=== PATIENT | male | born 1950 | race Caucasian/White ===

== ENCOUNTER 2017-07-24 16:40 | Emergency (ER) | payer MEDICARE, OTHER ==
[2017-07-24 16:51] VITALS: BP 184/111
[2017-07-24] MEDS ORDERED: cephALEXin 250 MG CAPSULE PO STA (16:59)
[2017-07-24] MEDS ORDERED: TETANUS/DIPHTHERIA/PERTUSSIS 0.5 ML SYRINGE IM ONE ×2 (16:59→17:30)
[2017-07-24] MEDS ORDERED: cephALEXin 250 MG CAPSULE PO ONE (17:30)
--- NOTE | 2017-07-24 17:36 | XRAY Preliminary Report ---
Exam: XR FINGER(S) LT IMPRESSION: 1. No fracture or cortical irregularity of the distal first digit. 2. There is a nail extending through the subcutaneous soft tissue on the volar distal aspect of the f irst digit. [facility] SITE ID: [id number]
--- NOTE | 2017-07-24 17:36 | ED Physician Documentation ---
PD HPI UPPER EXT INJURY - Stated complaint Stated Complaint: FO IN L THUMB - Chief complaint Chief Complaint: Ext Problem - History obtained from History obtained from: Patient - History of Present Illness Location: Left, Finger (thumb) Type of injury: Foreign body (nail) Where injury occurred: Home Timing - onset: How many hours ago (< 1) Similar symptoms before: Has not had sx before - Additonal information Additional information: The patient is a 67-year-old male who was using his nail gun at home with he shot a nail through his left thumb. He is right hand dominant. He is uncertain about his tetanus status. Review of Systems Constitutional: denies: Fever Respiratory: denies: Dyspnea GI: denies: Nausea, Vomiting Skin: denies: Rash Musculoskeletal: reports: Extremity pain (left thumb) Neurologic: denies: Focal weakness, Numbness PD PAST MEDICAL HISTORY - Past Medical History Cardiovascular: Hypertension Respiratory: None Endocrine/Autoimmune: None - Past Surgical History Past Surgical History: Yes - Present Medications Home Medications: Ambulatory Orders Medication Instructions Recorded Confirmed Aspirin [Aspir 81] 81 mg PO DAILY 08/06/15 07/24/17 Metoprolol Tartrate 25 mg PO DAILY 07/24/17 07/24/17 amLODIPine [Norvasc] 5 mg PO DAILY 07/24/17 07/24/17 cephALEXin [Cephalexin] 500 mg PO TID #15 tablet 07/24/17 - Allergies Allergies/Adverse Reactions: Allergies Allergy/AdvReac Type Severity Reaction Status Date / Time lisinopril Allergy Anaphylaxis Verified 07/24/17 16:49 - Social History Does the pt smoke?: No Smoking Status: Never smoker Does the pt drink ETOH?: No Does the pt have substance abuse?: No - Immunizations Immunizations are current?: No Immunizations: TDAP >10years/unknown - POLST Patient has POLST: No PD ED PE NORMAL - Vitals Vital signs reviewed: Yes (Initially hypertensive.) - General General: Alert and oriented X 3, Well developed/nourished - HEENT HEENT: Atraumatic - Cardiac Cardiac: RRR - Respiratory Respiratory: No respiratory distress - Derm Derm: No rash - Extremities Extremities: Other (There is an 8-boyd nail penetrating through the volar aspect of the left thumb distal to the PIP joint. He is able to flex and extend at the DIP joint. Distal neurovascular is intact.) - Neuro Neuro: Alert and oriented X 3, No motor deficit, No sensory deficit Results - Vitals Vitals: Oxygen O2 Source Room air - Rads (name of study) Left thumb Radiology: Prelim report reviewed, EMP read contemporaneously, See rad report ( No fracture or cortical irregularity of the distal first digit. There is a nail extending through the subcutaneous soft tissue on the volar distal aspect of the first digit.No fracture or cortical irregularity of the distal first digit. There is a nail extending through the subcutaneous soft tissue on the volar distal aspect of the first digit.) Procedures - Regional nerve block Nerve block site: Digital - note digit(s) (left thumb) Right / left: Left Nerve block anesthesia: Marcaine 0.25% Nerve block aftercare: Excellent anesthesia, Patient tolerated well, No complications PD MEDICAL DECISION MAKING - ED course Complexity details: reviewed results, re-evaluated patient, considered differential, d/w patient, d/w family ED course: The patient's presentation is significant for metallic foreign body (nail) penetrating through the volar soft tissue of the left distal thumb. An x-ray reveals no impact on the bone of the distal phalanx. Treatment in the emergency department included a digital block using 0.25% Marcaine. After good anesthesia was obtained the nail was removed without complication. Antibiotic ointment and gauze dressing was applied. Cephalexin 500 mg administered orally. I discussed with the patient and his the expected course of injury , antibiotic treatment and outpatient follow-up, as well as potentially worrisome signs or symptoms that should prompt reevaluation in the emergency department. Departure - Departure Disposition: 01 Home, Self Care Clinical Impression: Foreign body (FB) in soft tissue Condition: Stable Instructions: ED Foreign Body Soft Tissue Removed Follow-Up: [facility] [Provider Group] Prescriptions: cephALEXin [Cephalexin] 500 mg PO TID #15 tablet Comments: Keep your right hand elevated as much of the time as possible. Take cephalexin 3 times daily as prescribed. Use Tylenol or ibuprofen as needed for pain or discomfort. Follow up with your primary physician, or return to the emergency department, if you develop any sign of infection, or otherwise worsening symptoms. Discharge Date/Time: 07/24/17 17:44
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
== END 2017-07-24 17:44 | disposition home or self-care (01) ==
LOC: ED 16:40
DX: S60.352A Superficial foreign body of left thumb, initial encounter (principal); W29.4XXA Contact with nail gun, initial encounter; Y92.009 Unspecified place in unspecified non-institutional (private) residence as the place of occurrence of the external cause; Z23 Encounter for immunization; I10 Essential (primary) hypertension
CPT/HCPCS: 73140; 90471; 90715; 99283; A9270; 64450

== ENCOUNTER 2020-05-20 15:45 | Outpatient (CLI) | payer MEDICARE, OTHER | END 2020-05-20 15:46 | disposition home or self-care (01) | LOC: RT 15:45 | PROVIDERS: ATTEND Internal Medicine Cardiovascular Disease | DX: I48.91 Unspecified atrial fibrillation (principal) | CPT/HCPCS: 93005 ==

== ENCOUNTER 2020-07-08 12:19 | Outpatient (CLI) | payer MEDICARE, OTHER ==
[2020-07-08 13:41] LABS: BASOPHILS # (AUTO) 0.1 10^3/uL (0.0-0.1); BASOPHILS % (AUTO) 0.8 %; EOSINOPHILS # (AUTO) 0.3 10^3/uL (0.0-0.7); EOSINOPHILS % (AUTO) 3.2 %; HGB - HEMOGLOBIN 15.2 g/dL (14.0-18.0); LYMPHOCYTES # (AUTO) 2.4 10^3/uL (1.5-3.5); LYMPHOCYTES % (AUTO) 30.9 %; MEAN CORPUSCULAR HEMOGLOBIN 29.9 pg (27.0-31.0); MEAN CORPUSCULAR HGB CONC 32.8 g/dL (32.0-36.0); MEAN PLATELET VOLUME 12.2 fL (7.4-11.4); MONOCYTES # (AUTO) 0.7 10^3/uL (0.0-1.0); MONOCYTES % (AUTO) 8.7 %; NEUTROPHILS # (AUTO) 4.3 10^3/uL (1.5-6.6); PLT - PLATELET COUNT 190 10^3/uL (130-450); RED BLOOD COUNT 5.09 10^6/uL (4.70-6.10); RED CELL DISTRIBUTION WIDTH 12.9 % (12.0-15.0); WHITE BLOOD COUNT 7.7 x10^3/uL (4.8-10.8)
== END 2020-07-08 12:20 | disposition home or self-care (01) ==
LOC: LAB 12:19
PROVIDERS: ATTEND Internal Medicine Cardiovascular Disease
DX: I48.91 Unspecified atrial fibrillation (principal)
CPT/HCPCS: 36415; 85025

== ENCOUNTER 2020-08-19 13:13 | Outpatient (CLI) | payer MEDICARE, OTHER | END 2020-08-19 13:14 | disposition home or self-care (01) | LOC: RT 13:13 | PROVIDERS: ATTEND Internal Medicine Cardiovascular Disease | DX: I48.91 Unspecified atrial fibrillation (principal) | CPT/HCPCS: 93005 ==

== ENCOUNTER 2023-01-31 10:34 | Outpatient (CLI) | payer MEDICARE, OTHER ==
[2023-01-31 10:59] LABS: CREATININE 1.1 mg/dL (0.6-1.2); POTASSIUM 4.1 mmol/L (3.5-5.0)
== END 2023-01-31 10:35 | disposition home or self-care (01) ==
LOC: LAB 10:34
PROVIDERS: ATTEND Internal Medicine Cardiovascular Disease
DX: I10 Essential (primary) hypertension (principal)
CPT/HCPCS: 36415; 80048

== ENCOUNTER 2023-02-03 15:06 | Outpatient (CLI) | payer MEDICARE | END 2023-02-03 23:59 | disposition left against medical advice (07) | LOC: EMS 15:06 | DX: R55 Syncope and collapse (principal) ==

== ENCOUNTER 2023-02-03 16:01 | Emergency (ER) | payer MEDICARE ==
[2023-02-03] MEDS ORDERED: SODIUM CHLORIDE 0.9% 1,000 ML IV STA ×2 (16:38→17:52)
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
[2023-02-03 16:40] LABS: BASOPHILS # (AUTO) 0.1 10^3/uL (0.0-0.1); BASOPHILS % (AUTO) 0.7 %; EOSINOPHILS % (AUTO) 0.3 %; HCT - HEMATOCRIT 46.8 % (42.0-52.0); HGB - HEMOGLOBIN 15.7 g/dL (14.0-18.0); LYMPHOCYTES % (AUTO) 13.1 %; MEAN CORPUSCULAR HEMOGLOBIN 29.1 pg (27.0-31.0); MEAN CORPUSCULAR HGB CONC 33.5 g/dL (32.0-36.0); MEAN CORPUSCULAR VOLUME 86.7 fL (80.0-94.0); MEAN PLATELET VOLUME 10.7 fL (7.4-11.4); MONOCYTES # (AUTO) 0.4 10^3/uL (0.0-1.0); MONOCYTES % (AUTO) 5.6 %; NEUTROPHILS # (AUTO) 5.9 10^3/uL (1.5-6.6); NEUTROPHILS % (AUTO) 79.9 %; PLT - PLATELET COUNT 211 10^3/uL (130-450); RED CELL DISTRIBUTION WIDTH 12.7 % (12.0-15.0); WHITE BLOOD COUNT 7.4 x10^3/uL (4.8-10.8)
--- NOTE | 2023-02-03 16:52 | XRAY Report ---
PROCEDURE: Chest 1 View X-Ray INDICATIONS: Chest Pain TECHNIQUE: One view of the chest was acquired. COMPARISON: 08/06/2015. FINDINGS: Surgical changes and devices: None. Lungs and pleura: No pleural effusions or pneumothorax. Lungs are clear. Mediastinum: Mediastinal contours appear normal. Heart size is normal. Bones and chest wall: No suspicious bony lesions. Overlying soft tissues appear unremarkable. IMPRESSION: No acute cardiopulmonary process. Reviewed by: Dev Mayfield MD on 02/03/2023 4:51 PM PDT Approved by: Dev Mayfield MD on 02/03/2023 4:51 PM PDT Station ID: [id number]
[2023-02-03 16:56] LABS: ALBUMIN 3.9 g/dL (3.2-5.5); ALBUMIN/GLOBULIN RATIO 1.1 (1.0-2.2); BILIRUBIN,TOTAL 0.9 mg/dL (0.2-1.0); CALCIUM 9.5 mg/dL (8.5-10.3); CREATININE 1.4 mg/dL (0.6-1.2); POTASSIUM 3.8 mmol/L (3.5-5.0); TOTAL PROTEIN 7.4 g/dL (6.7-8.2)
--- NOTE | 2023-02-03 16:59 | CT Report ---
PROCEDURE: HEAD WO INDICATIONS: ? seizure activity TECHNIQUE: Noncontrast 4.5 mm thick angled axial sections acquired from the foramen magnum to the vertex. For r adiation dose reduction, the following was used: automated exposure control, adjustment of mA and/or kV according to patient size. COMPARISON: None. FINDINGS: Image quality: Excellent. CSF spaces: Basal cisterns are patent. Large cystic structure within left temporal fossa is seen me asures 4.5 x 4.2 cm in size in transverse and AP dimension. No extra-axial fluid collections. Ventri cles are normal in size and shape. Brain: No midline shift. No intracranial masses or hemorrhage. Pérez-white matter interface is norm al. Skull and face: Calvarium and visualized facial bones are intact, without suspicious lesions. Sinuses: Visualized sinuses and mastoids are clear. IMPRESSION: 1. No CT evidence of acute intracranial bleed, midline shift or mass effect. 2. Large cystic structure within left temporal fossa likely represent arachnoid cyst. Reviewed by: Dev Mayfield MD on 02/03/2023 4:57 PM PDT Approved by: Dev Mayfield MD on 02/03/2023 4:57 PM PDT Station ID: [id number]
[2023-02-03] MEDS ORDERED: diltiaZEM INJ 5 MG/ML VIAL IVP ONE (17:50)
[2023-02-03] MEDS ORDERED: diltiaZEM INJ 5 MG/ML VIAL IVP STA (18:01)
[2023-02-03 19:04] VITALS: BP 130/80
== END 2023-02-03 19:04 | disposition home or self-care (01) ==
LOC: ED 16:01
DX: R55 Syncope and collapse (principal); E86.0 Dehydration; I10 Essential (primary) hypertension; G93.0 Cerebral cysts; I48.11 Longstanding persistent atrial fibrillation; Z79.01 Long term (current) use of anticoagulants; Z87.891 Personal history of nicotine dependence
CPT/HCPCS: 36415; 80053; 83690; 83880; 84484; 85025; 93005; 96374; 99284

== ENCOUNTER 2023-02-07 10:18 | Outpatient (CLI) | payer MEDICARE ==
[2023-02-07 10:38] LABS: CALCIUM 9.4 mg/dL (8.5-10.3); CREATININE 1.2 mg/dL (0.6-1.2); POTASSIUM 3.9 mmol/L (3.5-5.0)
== END 2023-02-07 10:19 | disposition home or self-care (01) ==
LOC: LAB 10:18
PROVIDERS: ATTEND Internal Medicine Cardiovascular Disease
DX: I10 Essential (primary) hypertension (principal)
CPT/HCPCS: 36415; 80048